=== PATIENT | female | born 1980 | race Caucasian/White ===

== ENCOUNTER 2018-03-21 09:56 | Day surgery (SDC) | payer BC ==
[2018-03-18 16:03] LABS: BASOPHILS % (AUTO) 0.4 % (0-1); EOSINOPHILS # (AUTO) 0.1 X10'3 (0-0.9); EOSINOPHILS % (AUTO) 0.8 % (0-6); LYMPHOCYTES # (AUTO) 2.4 X10'3 (1.1-4.8); MEAN CORPUSCULAR HEMOGLOBIN 24.6 PG (27.0-31.0); MEAN CORPUSCULAR HGB CONC 33.3 % (33.0-36.5); MEAN CORPUSCULAR VOLUME 73.8 FL (78-98); MEAN PLATELET VOLUME 7.6 FL (7.4-10.4); MONOCYTES # (AUTO) 0.7 X10'3 (0-0.9); MONOCYTES % (AUTO) 7.3 % (2-12); NEUTROPHILS # (AUTO) 6.6 X10'3 (1.8-7.7); NEUTROPHILS % (AUTO) 66.5 % (42-75); PRE OP HEMATOCRIT 33.4 % (35.0-45.0); PRE OP HEMOGLOBIN 11.1 g/dL (12.0-16.0); PRE OP PLATELET COUNT 383 X10'3 (140-440); RED BLOOD COUNT 4.53 X10'6 (4.20-5.60); RED CELL DISTRIBUTION WIDTH 17.8 % (11.5-14.5)
[2018-03-18 16:07] LABS: CLARITY,URINE CLOUDY (Clear); COLOR,URINE YELLOW (Yellow); GLUCOSE, URINE NEGATIVE (Neg); KETONES,URINE NEGATIVE (Neg); LEUKOCYTE ESTERASE ,URINE NEGATIVE (Neg); NITRITES, URINE NEGATIVE (Neg); OCCULT BLOOD,URINE LARGE (Neg); PH,URINE 5.5 (4.8-8.0); PROTEIN,URINE 30 mg/dl (Neg); UROBILINOGEN,URINE 0.2 E.U/dL (0.2-1.0)
[2018-03-18 16:11] LABS: UA COLLECTION TYPE CLN CATCH MIDSTREAM
[2018-03-18 16:17] LABS: ALBUMIN 3.5 G/DL (3.4-5.0); ALBUMIN/GLOBULIN RATIO 0.8 (1.1-1.5); ALKALINE PHOSPHATASE 40 IU/L (46-116); BLOOD UREA NITROGEN 13 MG/DL (7-18); BUN/CREATININE RATIO 14.8 (6.6-38.0); CALCIUM 8.3 MG/DL (8.5-10.1); CHLORIDE 106 MMOL/L (99-107); CREATININE 0.88 MG/DL (0.40-0.90); PRE OP ALT 32 U/L (30-65); PRE OP ANION GAP 10 (8-16); PRE OP AST 13 U/L (10-37); PRE OP BILIRUB, TOTAL 0.3 MG/DL (0.0-1.0); PRE OP GLUCOSE 68 MG/DL (70-104); PRE OP POTASSIUM 3.7 MMOL/L (3.4-5.1); PRE OP SODIUM 139 MMOL/L (135-145); TOTAL CARBON DIOXIDE 23.4 MMOL/L (24-32); TOTAL PROTEIN 7.8 G/DL (6.4-8.2); eGFR 72 ML/MIN
[2018-03-18 16:23] LABS: MUCUS STRANDS MANY /LPF (Neg); SQUAMOUS EPITHELIAL CELL,UR MANY /LPF (FEW)
[2018-03-18 16:25] LABS: BACTERIA,URINE FEW /HPF (Neg)
[2018-03-18 16:36] LABS: HCG SERUM QL NEGATIVE
[~2018-03-21] VITALS: Ht 180.3 cm; Wt 117.0 kg
[~2018-03-21 09:56] MED LIST: FERR325T28 PO; NORE-33; ceFOXitin 2 GM ADDvantage bag 100 ML IV ONE; famotidine 20mg tablet PO ONE; ringers solution, lacted 1,000 ML IV SCH
[2018-03-21] MEDS ORDERED: ringers solution, lacted 1,000 ML IV SCH (10:44)
[2018-03-21] MEDS ORDERED: proCHLORperazine 10 MG/2 ml inj IV PRN (10:45)
[2018-03-21] MEDS ORDERED: meperidine/PF 25mg/ml syringe IV PRN ×3 (10:45)
[2018-03-21] MEDS ORDERED: morphine 4 MG/ML inj SYRINge IV PRN ×2 (10:45)
[2018-03-21] MEDS ORDERED: ondansetron/PF 4mg/2ml inj IV PRN (10:45)
[2018-03-21 10:51] LABS: CLARITY,URINE SLIGHTLY CLOUDY (Clear); COLOR,URINE YELLOW (Yellow); GLUCOSE, URINE NEGATIVE (Neg); KETONES,URINE NEGATIVE (Neg); LEUKOCYTE ESTERASE ,URINE NEGATIVE (Neg); NITRITES, URINE NEGATIVE (Neg); OCCULT BLOOD,URINE LARGE (Neg); PROTEIN,URINE TRACE mg/dl (Neg); UROBILINOGEN,URINE 0.2 E.U/dL (0.2-1.0)
[2018-03-21 10:55] LABS: UA COLLECTION TYPE CLN CATCH MIDSTREAM
[2018-03-21 11:05] LABS: MUCUS STRANDS MANY /LPF (Neg); SQUAMOUS EPITHELIAL CELL,UR MODERATE /LPF (FEW)
[2018-03-21 11:06] LABS: RBC,URINE TNTC /HPF (0-2)
[2018-03-21 11:07] LABS: BACTERIA,URINE 1+ /HPF (Neg); WBC,URINE 0-4 /HPF (0-4)
[2018-03-21 11:58] VITALS: BP 137/81
[2018-03-21 12:03] VITALS: BP 137/81
[2018-03-21] MEDS ORDERED: LIDOcaine 2% (20mg/ml) 5ml vial ONE (13:33)
[2018-03-21] MEDS ORDERED: propofol inj 20 ML IV ONE (13:33)
[2018-03-21] MEDS ORDERED: fentaNYL/PF 50MCG/1 ML 2ML syringe ONE (13:33)
[2018-03-21] MEDS ORDERED: midazolam 2 mg/2 ml injection ONE (13:33)
[2018-03-21] MEDS ORDERED: sevoflurane 250ml liquid IH ONE (13:35)
[2018-03-21] MEDS ORDERED: dexamethasone sod phosphate 10mg/ml inj ONE (13:35)
[2018-03-21] MEDS ORDERED: ketorolac trometh. 30mg/ml inj. ONE (13:57)
[2018-03-21] MEDS ORDERED: ondansetron/PF 4mg/2ml inj ONE (13:57)
[2018-03-21 14:17] VITALS: BP 124/65
[2018-03-21 14:27] VITALS: BP 128/61
[2018-03-21 14:37] VITALS: BP 134/65
[2018-03-21 14:47] VITALS: BP 132/64
== END 2018-03-21 14:57 | disposition home or self-care (01) ==
LOC: PAS 09:56
PROVIDERS: ATTEND Obstetrics & Gynecology Obstetrics
DX: N85.8 Other specified noninflammatory disorders of uterus (principal); E66.9 Obesity, unspecified; K21.9 Gastro-esophageal reflux disease without esophagitis; Z68.36 Body mass index [BMI] 36.0-36.9, adult; Z90.89 Acquired absence of other organs; Z79.1 Long term (current) use of non-steroidal anti-inflammatories (NSAID); Z79.891 Long term (current) use of opiate analgesic; Z88.8 Allergy status to other drugs, medicaments and biological substances; Z79.899 Other long term (current) drug therapy; Z98.890 Other specified postprocedural states
CPT/HCPCS: 36415; 58558; 80053; 81001; 84703; 85025; 86885; 86900; 86901; 93005; A4355; A6255; J0694; J1100; J1885; J2001; J2250; J2405; J2704; J3010; J7030; J7120; A7000